=== PATIENT | female | born 2000 | race Caucasian/White ===

== ENCOUNTER → 2020-07-14 | Outpatient (CLI) | payer OTHER ==
[2020-07-14 20:07] LABS: FREE T4 0.99 ng/dL (0.76-1.46); THYROID STIM HORMONE (TSH) 0.568 uIU/mL (0.358-3.740)
[2020-07-15 00:07] LABS: HEMOGLOBIN A1C 5.3 % (4.8-5.6)
== END ==
LOC: LAB 10:21
PROVIDERS: ATTEND Pediatrics
DX: Z13.220 Encounter for screening for lipoid disorders (principal); Z13.1 Encounter for screening for diabetes mellitus
CPT/HCPCS: 36415; 80061; 83036; 84439; 84443; 86140